=== PATIENT | female | born 1975 | race American Indian/Alaskan Native ===

== ENCOUNTER 2017-02-19 10:36 | Outpatient (CLI) | payer OTHER ==
--- NOTE | 2017-02-19 12:38 | Ultrasound Report ---
TRANSABDOMINAL AND TRANSVAGINAL PELVIC ULTRASOUND: 02/19/17 10:36:00 CLINICAL: Irregular menses. FINDINGS: Transabdominal and transvaginal pelvic ultrasound demonstrated a normal uterus measuring 8.7 x 3.4 x 4.6 cm. Normal uterine contour and echogenicity.The endometrium is normal and measures 6.0 mm AP thickness. Small but otherwise normal ovaries. The right ovary measures 1.2 x 1.0 x 1.2cm. The left ovary measures 2.1 x 1.4 x 1.2cm. No adnexal mass. No free fluid. Normal urinary bladder. IMPRESSION: 1. Normal uterus. 2. Small but otherwise normal ovaries.
== END 2017-02-19 10:37 | disposition home or self-care (01) ==
LOC: SPVWC 10:36
PROVIDERS: ATTEND Family Medicine
DX: N92.6 Irregular menstruation, unspecified (principal); N85.2 Hypertrophy of uterus
CPT/HCPCS: 76830; 76856

== ENCOUNTER 2018-12-08 09:10 | Outpatient (CLI) | payer MEDICAID, OTHER | END 2018-12-08 09:11 | disposition home or self-care (01) | LOC: ECHO 09:10 | DX: C50.211 Malignant neoplasm of upper-inner quadrant of right female breast (principal); I51.7 Cardiomegaly | CPT/HCPCS: 93306 ==

== ENCOUNTER 2019-02-10 09:21 | Outpatient (CLI) | payer OTHER ==
--- NOTE | 2019-02-10 14:21 | PET Report ---
PET SB TO MT SUBSEQUENT: HISTORY: Restaging of breast and lung cancer. TECHNIQUE: 13.3 millicuries F-18 FDG was administered intravenously. Noncontrast CT images and PET images were obtained from the skull base to the proximal thighs. Fused images were reviewed on a workstation. The patient's blood glucose level measured 93. COMPARISON: No comparison exam at this facility. FINDINGS: BRAIN: physiologic FDG uptake in the imaged brain. NECK: physiologic FDG uptake. CHEST WALL: There is an asymmetric soft tissue density in the medial right breast measuring 5.2 x 2.9 cm on axial image 89. This may represent a surgical site. Max SUV in this area measures 2.3. No hypermetabolic breast mass is detected. MEDIASTINUM: physiologic FDG uptake. LUNGS: physiologic FDG uptake. No suspicious pulmonary nodule or mass. PLEURA/PERICARDIUM: physiologic FDG uptake. THORACIC LYMPH NODES: physiologic FDG uptake. HEPATOBILIARY: physiologic FDG uptake. A 2.6 cm rounded hypodensity is identified in the right hepatic lobe. The internal density measures 5 Hounsfield units. This lesion is hypometabolic on PET and appears to represent a cyst or hemangioma. Mean liver SUV measures 4.3. PANCREAS: physiologic FDG uptake. SPLEEN: physiologic FDG uptake. ADRENAL GLANDS: physiologic FDG uptake. KIDNEYS/RENAL COLLECTING SYSTEMS: physiologic FDG uptake. Multiple bilateral tiny renal calyceal stones are identified BOWEL/MESENTERY: physiologic FDG uptake. PELVIC VISCERA: physiologic FDG uptake. ABDOMINAL/PELVIC LYMPH NODES: physiologic FDG uptake. MUSCULOSKELETAL: physiologic FDG uptake. IMPRESSION: Negative PET/CT. No evidence for disease recurrence or metastasis. There is an asymmetric hypometabolic soft tissue density in the medial right breast as described above which may represent a surgical site. Please correlate with the patient's history.
== END 2019-02-10 09:22 | disposition home or self-care (01) ==
LOC: PET 09:21
PROVIDERS: ATTEND Internal Medicine Hematology & Oncology
DX: C50.211 Malignant neoplasm of upper-inner quadrant of right female breast (principal); C78.00 Secondary malignant neoplasm of unspecified lung; N20.0 Calculus of kidney
CPT/HCPCS: 78815; 82962; A9552

== ENCOUNTER 2019-03-09 13:38 | Outpatient (CLI) | payer OTHER | END 2019-03-09 13:39 | disposition home or self-care (01) | LOC: ECHO 13:38 | PROVIDERS: ATTEND Internal Medicine Hematology & Oncology | DX: C50.211 Malignant neoplasm of upper-inner quadrant of right female breast (principal) | CPT/HCPCS: 93306 ==